=== PATIENT | female | born 1965 | race Caucasian/White ===

== ENCOUNTER 2017-09-28 11:55 | Observation (INO) ==
--- NOTE | 2017-09-28 12:20 | Emergency Department Note ---
Disposition Clinical Impression: Ataxia Disposition: Admitted As Inpatient Condition: Good Referrals: NONE,PCP [Primary Care Provider] - Forms: ED Satisfaction Letter Time of Disposition: 14:36 Dizziness HPI - General Chief Complaint: ED Dizziness Stated Complaint: Dizzy Nausea Time Seen by Provider: 09/28/17 12:16 Source: patient Mode of arrival: ambulatory Limitations: no limitations Nursing Notes Reviewed: Yes Vital Signs Reviewed: Yes - History of Present Illness HPI Narrative: 52-year-old female who awoke about an hour and a half ago with acute dizziness when she lifted her head off the bed. Says she has had vertigo twice in the past and this is different. She had difficulty ambulating. Pt Subjective Complaint: dizziness, lightheadedness Onset (ago): [facility] Timing: sudden onset Description: off-balance, difficulty walking History of similar episodes: No History of trauma: No Severity: moderate, severe Improves with: nothing Worsens with: movement Associated symptoms: Reports: ataxia - Related Data Home Medications Medication Instructions Recorded Confirmed No Known Home Drugs 09/19/16 09/19/16 Allergies Allergy/AdvReac Type Severity Reaction Status Date / Time No Known Allergies Allergy Verified 09/28/17 11:58 Constitutional: Denies: fever, chills, weakness, weight change Eyes: Denies: eye pain, eye discharge, vision change ENT ED: Denies: ear pain, throat pain, dental pain, hearing loss, epistaxis, congestion, dysphagia Cardiovascular: Denies: chest pain, palpitations, dyspnea on exertion, edema, syncope Respiratory: Denies: cough, dyspnea, wheezes, hemoptysis, stridor Gastrointestinal: Denies: abdominal pain, nausea, vomiting, diarrhea, constipation, hematemesis, melena, hematochezia Genitourinary: Denies: dysuria, frequency, hematuria, discharge Musculoskeletal: Denies: back pain, neck pain, arthralgia, myalgia Integumentary: Denies: rash, abrasion, lesions Neurological: Reports: other (Dizziness difficulty walking). Denies: headache, weakness, numbness, paresthesias, confusion, abnormal gait, vertigo Psychiatric: Denies: anxiety, depression, suicidal thoughts, homicidal thoughts , auditory hallucinations, visual hallucinations Endocrine: Denies: fatigue Hematological/Lymphatic: Denies: easy bleeding, easy bruising Allergic/Immunologic: Denies: facial swelling, urticaria Past Medical History - Past Medical History Medical history: Reports: no medical history Surgical history: Reports: appendectomy, cholecystectomy, hysterectomy Psychiatric history: Reports: no psych history CERTIFIED SURGICAL TECHNICIAN history: Reports: no CERTIFIED SURGICAL TECHNICIAN history - Social History Smoking Status: Current every day smoker Smokeless Tobacco Status: No Alcohol use: Reports: none Drug use: Reports: none Physical Exam - General Limitations: no limitations General appearance: alert, in no apparent distress - Head Head exam: atraumatic, normocephalic, normal inspection - Eye Eye exam: Present: normal appearance, PERRL, EOMI - ENT ENT exam: normal exam, normal oropharynx, mucous membranes moist - Neck Neck exam: Present: normal inspection, full ROM, trachea midline - Chest Chest inspection: Present: normal inspection, symmetric chest wall rise - Respiratory Respiratory exam: Present: normal lung sounds bilaterally - Cardiovascular Cardiovascular exam: Present: regular rate, normal rhythm, normal heart sounds - Abdominal Exam Abdominal exam: Present: soft, Non-Tender. Absent: tenderness, distention, guarding, rebound, rigidity - Extremities Exam Extremities exam: Present: normal inspection, full ROM. Absent: tenderness, pedal edema - Expanded Lower Extremity Exam Hip/Pelvis exam: Present: normal inspection, full ROM Neurovascular/Tendon exam: Absent: motor deficit, sensory deficit, tendon deficit Gait: observed and normal - Back Exam Back exam: Present: normal inspection, full ROM. Absent: tenderness - Neurological Exam Neurological exam: Present: alert, oriented X3 - Psychiatric Psychiatric exam: Present: normal affect, normal mood - Skin Skin exam: Present: warm, dry, intact, normal color Course - Reevaluation(s) Reevaluation #1: 52-year-old with ataxic gait and difficulty with the dizziness whose had a history of vertigo and states this is not similar to those episodes comes in because of inability to stand up and walk. A CT was negative for acute findings. We will go ahead and admit the patient. Time: 14:37 - Consultations Consultation #1: Discussed with , jimena. Time: 15:03 Vital Signs Temperature 97.9 F 09/28/17 11:56 Pulse Rate 81 09/28/17 11:56 Respiratory Rate 18 09/28/17 11:56 Blood Pressure 136/85 09/28/17 11:56 O2 Sat by Pulse Oximetry 96 09/28/17 11:56 Temperature 98.5 F 09/28/17 14:13 Pulse Rate 63 09/28/17 14:13 Respiratory Rate 18 09/28/17 14:13 Blood Pressure 126/79 09/28/17 14:13 O2 Sat by Pulse Oximetry 98 09/28/17 14:13 Oxygen Delivery Oxygen Delivery Room Air Dizziness - Lab Data Lab results reviewed: Yes I reviewed the patient's lab results. Result diagrams: 09/28/17 12:34 09/28/17 12:34 Lab Results 09/28/17 09/28/17 09/28/17 Range/Units 12:30 12:34 12:34 WBC 7.2 (4.3-11.1) K/mcL RBC 4.57 (3.82-4.97) M/mcL Hgb 14.4 (11.5-15.4) g/dL Hct 43.4 (35.3-44.9) % MCV 95.0 (83.0-100.0) fL MCH 31.5 (28.0-33.3) pg MCHC 33.2 (31.6-35.5) g/dL RDW 13.0 (11.5-14.5) % Plt Count 278 (140-400) K/mcL MPV 9.0 L (9.4-12.4) fL Immature Gran % 0.3 (0-4) % Seg Neutrophils % 62.1 % Lymphocytes % 28.3 % Monocytes % 6.2 % Eosinophils % 2.4 % Basophils % 0.7 % Neutrophils # 4.5 (1.6-8.9) K/mcL Lymphocytes # 2.0 (0.6-4.6) K/mcL Monocytes # 0.4 (0.0-1.3) K/mcL Eosinophils # 0.2 (0.0-0.6) K/mcL Basophils # 0.1 (0.0-0.2) K/mcL Sodium 139 (136-145) mEq/L Potassium 4.1 (3.5-5.1) mEq/L Chloride 111 H (98-107) mEq/L Carbon Dioxide 19 L (23-29) mEq/L BUN 13 (6-20) mg/dL Creatinine 0.93 (0.60-1.20) mg/dL Est GFR ( Amer) > 60 (> 60) Est GFR (Non-Af Amer) > 60 (> 60) BUN/Creatinine Ratio 14 (6-26) Glucose 98 (70-105) mg/dL Calculated Osmolality 288 (280-300) Calcium 9.8 (8.6-10.3) mg/dL Troponin I < 0.03 (< 0.04) ng/mL Urine Color Yellow (Yellow) Urine Clarity Clear (Clear) Urine pH 6.5 (5.0-8.0) pH Units Ur Specific [place] 1.025 (1.010-1.025) Urine Protein Negative (Neg-Trace) mg/dL Urine Glucose (UA) Normal (Normal) mg/dL Urine Ketones Negative (Negative) mg/dL Urine Blood Negative (Negative) Urine Nitrite Negative (Negative) Urine Bilirubin Negative (Negative) Urine Urobilinogen Normal (Normal) mg/dL Ur Leukocyte Esterase Negative (Negative) Ur Culture Indicated? NO (NO) - Radiology Data Radiology results reviewed: Yes I reviewed the patient's radiology results. Chest X-Ray 09/28/17 12:16 IMPRESSION: No active cardiopulmonary disease D/ / Barrie Arreola MD / Barrie Arreola MD Interpreting Provider: Barrie Arreola MD Head CT 09/28/17 12:16 IMPRESSION: No acute intracranial abnormality. D/ / Jitendra Houser MD / Jitendra Houser MD Interpreting Provider: Jitendra Houser MD - EKG Data EKG attestation: Yes I reviewed and interpreted this EKG. EKG shows normal: sinus rhythm Rate: normal Rhythm: NSR [place]/QRS: normal Interpretation: no acute changes
[2017-09-28 12:49] LABS: Bilirubin,Urine Negative (Negative); Blood,Urine Negative (Negative); Color,Urine Yellow (Yellow); Glucose,Urine (UA) Normal (Normal); Ketones,Urine Negative (Negative); Leukocyte Esterase,Urine Negative (Negative); Nitrite,Urine Negative (Negative); PH,Urine 6.5 pH Units (5.0-8.0); Protein,Urine Negative (Neg-Trace); Specific Gravity,Urine 1.025 (1.010-1.025); Urobilinogen,Urine Normal (Normal)
[2017-09-28 12:49] LABS: Basophils # 0.1 K/mcL (0.0-0.2); Basophils % 0.7 %; Eosinophils # 0.2 K/mcL (0.0-0.6); Eosinophils % 2.4 %; Hematocrit 43.4 % (35.3-44.9); Hemoglobin 14.4 g/dL (11.5-15.4); Immature Granulocytes % 0.3 % (0-4); Lymphocytes % 28.3 %; Mean Corpuscular HGB Conc 33.2 g/dL (31.6-35.5); Mean Corpuscular Hemoglobin 31.5 pg (28.0-33.3); Monocytes # 0.4 K/mcL (0.0-1.3); Monocytes % 6.2 %; Neutrophils # 4.5 K/mcL (1.6-8.9); Platelet Count 278 K/mcL (140-400); Red Blood Count 4.57 M/mcL (3.82-4.97); Segmented Neutrophils % 62.1 %
[2017-09-28 12:52] LABS: Clarity,Urine Clear (Clear)
[2017-09-28 13:11] LABS: Troponin I < 0.03 ng/mL (< 0.04)
[2017-09-28] MEDS ORDERED: Acetaminophen 325 MG TABLET PO PRN (13:24)
[2017-09-28] MEDS ORDERED: Naloxone 0.4 MG/ML INJ IVP PRN (13:24)
[2017-09-28] MEDS ORDERED: SUMAtriptan succinate 25 MG TABLET PO PRN (13:32)
[2017-09-28 13:38] LABS: BUN/Creatinine Ratio 14 (6-26); Blood Urea Nitrogen 13 mg/dL (6-20); Calcium 9.8 mg/dL (8.6-10.3); Carbon Dioxide 19 mEq/L (23-29); Chloride 111 mEq/L (98-107); Glucose 98 mg/dL (70-105); Osmolality,Calculated 288 (280-300); Potassium 4.1 mEq/L (3.5-5.1); Sodium 139 mEq/L (136-145); eGFR For African Americans > 60 (> 60); eGFR For Non-African Americans > 60 (> 60)
--- NOTE | 2017-09-28 13:50 | Internal Med History&Physical ---
<ChuckricardomaryFranklyn good - Last Filed: 09/28/17 16:16> Date of Encounter: 09/28/17 Time of Encounter: 12:30 Internal Medicine - H&P: HPI Chief complaint: Dizziness Admitted From: Emergency Dept Plans for Post Hospital Care: Home History of present illness: Ms. Lema is a 52 year old female w/no medical hx presents to the ED w/CC of dizziness that began this morning at 10 a.m. and has not lessened in severity throughout the day. Reports no alleviating factors. States that changes in position of her head, opening her eyes, and light make the sx worsen. Also reports sharp pain in her left ear yesterday. Reports hx of vertigo many years ago but denies migraine hx. Associated sx: nausea, photophobia. States that her vertigo sx made it seem like room was spinning while current sx take place in her head. Denies recent illness, fever, chills, vomiting, sick contacts, headache, vision changes, CP, SOB, cough, chest congestion, abdominal pain, numbness, tingling, pre-syncope, or syncope. Past Med Surg Social Fam HX - Past Medical History Source: patient, old records reviewed, obtained from family Medical history: no medical history Psychiatric history: no psych history - Past Surgical History Surgical History: appendectomy, cholecystectomy, hysterectomy - Social History Smoking Status: Current every day smoker Smokeless Tobacco Status: No Alcohol use: none Drug use: none Current living situation: Home, With Family Activity Level: Independent ambulation, Very active Recent Out of Country Travel Within the Last 8 Weeks: No Exposure or Possible Exposure to Illness During Travel: No - Family History Grandmother Race: Family Member Ethnicity: Non- Living Status: Age at : 87 Cause of : CVA Hx Family Cardiac Disorders: Yes (CVA) Hx Family Neurologic Disorders: Yes (CVA) Father Race: Family Member Ethnicity: Non- Twin of Family Member: Yes, Identical Living Status: Still Living Hx Family Cardiac Disorders: Yes (HD, HTN, HLD) Hx Family Endocrine Disorder: Yes (DM) Mother Race: Family Member Ethnicity: Non- Living Status: Still Living Hx Family Endocrine Disorder: Yes (DM) Brother Race: Family Member Ethnicity: Non- Living Status: Still Living Hx Family Endocrine Disorder: Yes (DM) Hx Family Psychosocial Disorders: Yes (Anxiety and depression) Internal Medicine - H&P: Meds Meclizine HCl [Bonine] 25 mg PO BID PRN #15 tab.chew 09/29/17 [Rx] Ondansetron ODT [Zofran ODT] 4 mg PO Q6H PRN #20 tab.rapdis 09/29/17 [Rx] Simvastatin [Zocor] 20 mg PO HS #30 tablet 09/29/17 [Rx] 3 Allergy/AdvReac Type Severity Reaction Status Date / Time No Known Allergies Allergy Verified 09/28/17 15:24 All Systems PM: A 10-system review of systems was performed and is negative for pertinent findings except as documented above in the HPI. - Constitutional Constitutional: no chills, no fever(s), no night sweats - EENT Eyes: as per HPI, photophobia, no change in vision, no discharge, no pain Ears: as per HPI, ear pain (Left ear pain yesterday), no ear discharge, no tinnitus Nose, mouth and throat: no dysphagia, no nasal discharge, no neck pain, no sore throat - Breasts Breasts: as per HPI - Cardiovascular Cardiovascular ROS IM: no chest pain, no diaphoresis, no dyspnea, no lightheadedness, no palpitations, no syncope - Respiratory Respiratory: no cough, no dyspnea, no wheezing, no excessive phlegm production - Gastrointestinal Gastrointestinal: as per HPI, nausea, no abdominal pain, no diarrhea, no hematemesis, no hematochezia, no melena, no vomiting - Genitourinary Genitourinary: no change in urinary stream, no dysuria, no flank pain, no hematuria Menstruation: as per HPI - Musculoskeletal Musculoskeletal ROS IM: no numbness, no tingling - Integumentary Integumentary IM: as per HPI, erythema (Erythematous above left shoulder blade from tick bite three days ago. Two smaller tick bites on back.), sores (Three tick bites on back w/one that appears as non-healing above left shoulder blade.) , no rash, no unusual bruising - Neurological Neurological ROS: no confusion, no convulsions, no focal weakness, no numbness, no tingling, no tremor(s) - Psychiatric Psychiatric: as per HPI - Endocrine Endocrine IM: as per HPI - Hematologic/Lymphatic Hematologic/Lymphatic: no easy bruising - Allergic/Immunologic Allergic/Immunologic: as per HPI - Constitutional Vitals: Temp Pulse Resp BP Pulse Ox 97.9 F 81 18 136/85 96 09/28/17 11:56 09/28/17 11:56 09/28/17 11:56 09/28/17 11:56 09/28/17 11:56 General appearance: Present: cooperative, mild distress (Dizziness), A&O X 3, pleasant, obese, answers questions appropriately - Head Head exam: Present: atraumatic, normocephalic - Eye Eye exam: Present: PERRL, conjuntiva pink, sclera anicteric Pupils: Present: PERRL - ENT ENT exam: Present: normal exam - Neck Neck exam general surgery: Present: normal inspection, supple, trachea midline. Absent: lymphadenopathy - Respiratory Respiratory exam: Present: CTAB. Absent: accessory muscle use, rales, rhonchi, wheezes - Cardiovascular Cardiovascular exam: Present: RRR, +S1, +S2. Absent: diastolic murmur, gallop, rubs, systolic murmur - GI/Abdominal GI/Abdominal exam: Present: normal bowel sounds, soft, no peritoneal signs. Absent: distended, tenderness - Rectal Rectal exam: Present: deferred - Additional comments: exam deferred. - Extremities Exam Extremities exam: Present: warm, radial pulses palpable and symmetrical. Absent : calf tenderness, cyanotic, pedal edema - Back Exam Back exam: Present: rash noted (Surrounding tick bite above left shoulder blade) - Neurological Exam Neurological exam: Present: CN II-XII intact, oriented X3, no focal deficits. Absent: pronater drift, facial droop, speech deficit - Psychiatric Psychiatric exam: Present: normal affect, normal mood - Skin Skin exam: Present: dry, intact, rash (Noted above left shoulder blade surrounding tick bite from three weeks ago) Internal Med - H&P Results - Labs CBC & Chem 7: 09/28/17 12:34 09/28/17 12:34 Labs: Short CBC 09/28/17 Range/Units 12:34 WBC 7.2 (4.3-11.1) K/mcL Hgb 14.4 (11.5-15.4) g/dL Hct 43.4 (35.3-44.9) % Plt Count 278 (140-400) K/mcL Neutrophils # 4.5 (1.6-8.9) K/mcL BMP 09/28/17 12:34 Sodium 139 Potassium 4.1 Chloride 111 H Carbon Dioxide 19 L BUN 13 Creatinine 0.93 Glucose 98 Calcium 9.8 Cardiac Enzymes 09/28/17 Range/Units 12:34 Troponin I < 0.03 (< 0.04) ng/mL Urine 09/28/17 Range/Units 12:30 Urine Color Yellow (Yellow) Urine Clarity Clear (Clear) Urine pH 6.5 (5.0-8.0) pH Units Ur Specific [place] 1.025 (1.010-1.025) Urine Protein Negative (Neg-Trace) mg/dL Urine Glucose (UA) Normal (Normal) mg/dL - Impressions ITS Impressions Chest X-Ray 09/28/17 12:16 IMPRESSION: No active cardiopulmonary disease D/ / Barrie Arreola MD / Barrie Arreola MD Interpreting Provider: Barrie Arreola MD Head CT 09/28/17 12:16 IMPRESSION: No acute intracranial abnormality. D/ / Jitendra Houser MD / Jitendra Houser MD Interpreting Provider: Jitendra Houser MD - Diagnostic Studies Chest x-ray Additional comments: Impressions Chest X-Ray 09/28/17 12:16 IMPRESSION: No active cardiopulmonary disease D/ / Barrie Arreola MD / Barrie Arreola MD Interpreting Provider: Barrie Arreola MD CT scan - head Additional comments: Impressions Head CT 09/28/17 12:16 IMPRESSION: No acute intracranial abnormality. D/ / Jitendra Houser MD / Jitendra Houser MD Interpreting Provider: Jitendra Houser MD - Assessment and plan (1) Dizziness Status: Acute Assessment and plan: Acute onset of dizziness this a.m. that patient reports has not happened to this severity before. Worsens w/positional or head changes. Also reports photophobia and worsening sx w/eyes open. Hx of vertigo many years ago but no migraine hx. No medical hx and no current medications. Lyme disease total antibody ordered. Bilateral carotid Dopplers. Echocardiogram ordered. Orthostatic BPs and VS. CT of head unremarkable. MRI of head/brain ordered. Falls/safety precautions, up with assist, bed rest w/bathroom privileges w/ assist only. Pt. discussed w/Dr. Centeno who agrees w/plan of care. Pt. is moderate risk for further morbidity d/t current sx, multiple infected tick bite , worsening sx w/positional changes, and familial hx of CVA in grandmother. Observation. (2) Nausea Status: Acute Assessment and plan: Acute nausea associated w/current dizziness. Worsens w/positional and head changes. IVP Zofran 4 mg Q6HR PRN for N/V. Monitor I&O. (3) DVT prophylaxis Status: Acute Assessment and plan: Heparin 5,000 units SQ Q12 for DVt prophylaxis. Monitor pt. for signs of bleeding. (4) Tick bite of multiple sites Status: Acute Assessment and plan: Acute and multiple tick bites on the patient's back. One tick bite above the left shoulder blade appears to be infected w/surrounding rash/erythema (does not appear as bullseye). Lyme disease total antibody ordered. Wound care consult and daily wound care ordered. Pt. is currently asymptomatic for infection and afebrile. Will monitor pt. and f/u labs. - Time Spent With Patient Total time spent is greater than 50% in coordination of care (as documented) at patient's floor/unit and/or counseling patient: Greater than 35 minutes <Azalea Centeno - Last Filed: 10/07/17 02:05> Date of Encounter: 09/28/17 Internal Medicine - H&P: HPI History of present illness: Ms. Lema is a 52 year old female All Systems PM: A 10-system review of systems was performed and is negative for pertinent findings except as documented above in the HPI. - Constitutional Vitals: Temp Pulse Resp BP Pulse Ox 97.4 F L 64 14 116/77 96 09/29/17 15:25 09/29/17 15:25 09/29/17 15:25 09/29/17 15:25 09/29/17 15:25 Internal Med - H&P Results - Labs CBC & Chem 7: 09/29/17 06:05 09/29/17 06:05 - Attending Attestation I personally and independently interviewed and examined the patient with SYSTEMS SOFTWARE SPECIALIST, and I reviewed the patient's medical records. I am in agreement with the assessment and proposed treatment plan. I discussed my findings and recommendation with the patient and answer all questions. The patient's medical records were edited to accurately reflect this encounter. - Assessment and plan (1) DVT prophylaxis Status: Acute (2) Dizziness Status: Resolved (3) Nausea Status: Acute (4) Tick bite of multiple sites Status: Acute - Time Spent With Patient Total time spent is greater than 50% in coordination of care (as documented) at patient's floor/unit and/or counseling patient:
[2017-09-28] MEDS ORDERED: Ondansetron 4 MG/2 ML VIAL IVP PRN (14:05)
[2017-09-28] MEDS: *HR* Heparin 5,000 UNIT/ML VIAL SQ SCH (22:45)
[2017-09-29] MEDS: *HR* Heparin 5,000 UNIT/ML VIAL SQ SCH ×2 (06:26→14:47)
[2017-09-29 07:19] LABS: Hematocrit 38.5 % (35.3-44.9); Hemoglobin 13.3 g/dL (11.5-15.4); Mean Corpuscular HGB Conc 34.5 g/dL (31.6-35.5); Mean Corpuscular Volume 95.5 fL (83.0-100.0); Mean Platelet Volume 9.4 fL (9.4-12.4); Platelet Count 262 K/mcL (140-400); Red Blood Count 4.03 M/mcL (3.82-4.97)
--- NOTE | 2017-09-29 07:21 | Electrocardiograph Report ---
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
[2017-09-29 07:55] LABS: Alanine Aminotransferase 12 Units/L (7-52); Albumin 3.5 g/dL (3.5-5.7); Albumin/Globulin Ratio 1.2 (1.1-2.2); Alkaline Phosphatase 66 Units/L (34-104); Aspartate Amino Transferase 10 Units/L (13-39); BUN/Creatinine Ratio 16 (6-26); Bilirubin,Total 0.3 mg/dL (0.3-1.0); Blood Urea Nitrogen 13 mg/dL (6-20); Calcium 9.2 mg/dL (8.6-10.3); Carbon Dioxide 21 mEq/L (23-29); Chol/HDL Ratio 7.6 (0-4.9); Cholesterol 242 mg/dL (< 200); Glucose 92 mg/dL (70-105); HDL Cholesterol 32 mg/dL (40-59); LDL Cholesterol,Calculated 159 mg/dL (0-99); Magnesium 2.2 mg/dL (1.6-2.6); Total Protein 6.5 g/dL (6.4-8.9); Triglycerides 255 mg/dL (< 150); eGFR For African Americans > 60 (> 60); eGFR For Non-African Americans > 60 (> 60)
[2017-09-29 09:34] LABS: Chloride 109 mEq/L (98-107); Osmolality,Calculated 288 (280-300); Potassium 4.2 mEq/L (3.5-5.1); Sodium 139 mEq/L (136-145)
[2017-09-29 10:03] LABS: Estimated Average Glucose 123 mg/dl; Hemoglobin A1C 5.9 %
[2017-09-29 15:26] VITALS: BP 116/77
--- NOTE | 2017-09-29 18:16 | Discharge Summary ---
- NOTES TO OUTPATIENT PROVIDER Notes to Outpatient Provider: Patient was admitted for dizziness, nausea. Patient has multiple tick bites across her body. Lyme antibody negative. Carotids are negative, echocardiogram is negative. MRI showed a remote lacunar infarct and left caudate nucleus and cerebellar hemisphere. Patient's dizziness has resolved, as he has resolved and she is able to tolerate meals, she is able to walk without any dizziness. Due to her hyperlipidemia, I will add a statin to her medication regimen, we discussed lifestyle modifications and diet changes. Date of Encounter: 09/29/17 Time of Encounter: 11:20 - Discharge Diagnosis (1) DVT prophylaxis Priority: Secondary Status: Acute Assessment and Plan: Heparin. Pt is ambulatory in the room. (2) Dizziness Priority: Secondary Status: Resolved Assessment and Plan: Patient acute onset of dizziness prior to arrival. History of dizziness in the past, not to this extent. Patient reports worsening with position or head changes. Patient denies any recent sick contacts. Head CT is negative. Brain MRI shows no acute intracranial abnormality, mild chronic white matter microvascular ischemic changes, a remote lacunar infarcts in the left caudate nucleus and right cerebellar hemisphere. Echocardiogram shows LVEF is 66 5% with mild LV DDsignificant valvular dysfunction. Patient with nonstenotic plaque bilaterally in carotid arteries per Doppler. Dizziness has resolved. Patient is able to ambulate without difficulty. Unclear etiology, patient states that when she gets up too quickly she can become dizzy and almost fall. I encouraged patient to remain hydrated and to get up slowly from a seated position. Follow with primary care. Boyle 25 mg when necessary dizziness, Zofran ODT when necessary nausea HEad CT 09/28/17 12:16 IMPRESSION: No acute intracranial abnormality. D/ / Jitendra Houser MD / Jitendra Houser MD Interpreting Provider: Jitendra Houser MD Brain MRI 09/28/17 13:38 IMPRESSION: 1. No acute intracranial abnormality. 2. Mild chronic white matter microvascular ischemic changes. 3. Remote lacunar infarcts in the left caudate nucleus and right cerebellar hemisphere. D/ / Chuy Weiss / Chuy Weiss Interpreting Provider: Chuy Weiss Echocardiogram 09/28/17 15:11 Impressions: LVEF 60-65%. Mild left ventricular diastolic dysfunction. Normal right ventricular structure and function. No significant valvular dysfunction. No pulmonary hypertension. Left Ventricular Wall Motion: Rest Echo Findings All wall segments showed normal motion. Findings: Study Quality * Technically adequate exam. ECG Findings * Normal sinus rhythm. Left Ventricle * LVEF 60-65%. * Normal LV chamber size, wall thickness and function. * Mild left ventricular diastolic dysfunction. Right Ventricle * Normal right ventricular structure and function. Left Atrium * Normal left atrial size. Right Atrium * Normal right atrial size. Aortic Valve * No aortic regurgitation. * Trileaflet aortic valve. * No aortic stenosis. Mitral Valve * Normal mitral valve structure. * No mitral stenosis. * Trace mitral regurgitation. Tricuspid Valve * Normal tricuspid valve structure. * Trace tricuspid regurgitation. * Estimated RA pressure is 3 mmHg. * Estimated RVSP is 17 mmHg. * No pulmonary hypertension. Pulmonic Valve * Pulmonic valve is not well visualized. * No pulmonic stenosis. * No pulmonic regurgitation. Pulmonary Artery * Pulmonary artery not well visualized. Aorta * Normally sized aortic root. Pericardium * There is no pericardial effusion present. Interatrial Septum * Interatrial septum not well evaluated. IVC * The IVC is not dilated. (3) Nausea Priority: Secondary Status: Acute Assessment and Plan: Nausea has resolved with dizziness. Will send patient home with prescription for Zofran 4 mg ODT every 6 hours as needed. Patient is able to tolerate regular diet tray without nausea or vomiting prior to discharge. (4) Tick bite of multiple sites Priority: Secondary Status: Acute Assessment and Plan: She reports that she has been walking in [place] [employer] [place] lately with her son. She reports multiple tick bites when she got home. Lyme disease antibody is negative. Patient has 2 areas on her back where ticks was located and removed that have redness and scratches were patient has been scratching them. There are no bull's-eye rash is around any of the tick bites. None of them appear to be infected. Continue to keep them clean and dry and watch them. Again, follow with primary care. Hospital course: Ms. Lema is a 52 year old female presented to the emergency department with sudden onset dizziness that began the morning of admission, did not improve throughout the day. Patient states that nothing made it stop and it was worsened with changes in position, opening her eyes, patient also reports photophobia. Patient reports having sharp pain in her left ear prior to arrival and does report a prior history of vertigo many years ago. Patient had associated symptoms of nausea. Echocardiogram showed preserved ejection fraction with mild LV DD and no significant valvular dysfunction. Carotids showed minimal plaque throughout. Patient had multiple tick bites recently, concern for Lyme disease. Antibody was negative. Status appeared to resolve on its own today, as it nausea. Patient was able to ambulate without difficulty or staggering, no dizziness. She was also able to eat without nausea or vomiting. Patient was found to have hyperlipidemia with elevated cholesterol, triglycerides, LDL, VLDL. Patient has been started on a statin. She will also be sent home with a prescription for Zofran ODT and meclizine 25 mg by mouth twice a day as needed for nausea. Vitals and labs are stable and within normal limits. Patient will need to follow with primary care for continued evaluation. She is not to drive until she follows up and is cleard by primary care. Discharge discussed with: patient, family - Time Spent with Patient Total time spent providing and/or coordinating discharge services: Less than 30 minutes - Discharge Medications Prescriptions: Meclizine HCl [Bonine] 25 mg PO BID PRN #15 tab.chew PRN Reason: Dizziness Ondansetron ODT [Zofran ODT] 4 mg PO Q6H PRN #20 tab.rapdis PRN Reason: Nausea Simvastatin [Zocor] 20 mg PO HS #30 tablet Home Medications: Meclizine HCl [Bonine] 25 mg PO BID PRN #15 tab.chew 09/29/17 [Rx] Ondansetron ODT [Zofran ODT] 4 mg PO Q6H PRN #20 tab.rapdis 09/29/17 [Rx] Simvastatin [Zocor] 20 mg PO HS #30 tablet 09/29/17 [Rx] Allergies/Adverse Reactions: 3 Allergy/AdvReac Type Severity Reaction Status Date / Time No Known Allergies Allergy Verified 09/28/17 15:24 Date of admission: 09/28/17 15:17 Primary care physician: PCP NONE Discharging clinician: Bell Whitlock Anticipated date of discharge: 09/29/17 - Constitutional Vitals: Temp Pulse Resp BP Pulse Ox 97.4 F L 64 14 116/77 96 09/29/17 15:25 09/29/17 15:25 09/29/17 15:25 09/29/17 15:25 09/29/17 15:25 General appearance: Present: cooperative, mild distress (Dizziness), A&O X 3, pleasant, obese, answers questions appropriately - Head Head exam: Present: atraumatic, normal inspection, normocephalic - Eye Eye exam: Present: EOMI, normal appearance, conjuntiva pink, sclera anicteric. Absent: nystagmus Pupils: Present: PERRL - Neck Neck exam general surgery: Present: normal inspection, supple, trachea midline. Absent: lymphadenopathy, tenderness - Respiratory Respiratory exam: Present: CTAB. Absent: accessory muscle use, rales, respiratory distress, rhonchi, wheezes - Cardiovascular Cardiovascular exam: Present: RRR, +S1, +S2. Absent: diastolic murmur, gallop, rubs, systolic murmur - GI/Abdominal GI/Abdominal exam: Present: normal bowel sounds, soft, no peritoneal signs. Absent: distended, hepatomegaly, tenderness - Extremities Exam Extremities exam: Present: normal capillary refill, normal inspection, warm, radial pulses palpable and symmetrical. Absent: calf tenderness, cyanotic, pedal edema, tenderness - Neurological Exam Neurological exam: Present: alert, oriented X3, no focal deficits. Absent: altered, facial droop, speech deficit - Skin Skin exam: Present: dry, intact, normal color, warm. Absent: rash - Patient Status Disposition: Home, Self-Care Condition: Good Functional capacity at discharge: independent ambulation Overall status at discharge: patient is progressing back to baseline - Discharge Instructions Follow Up With: Marino Means MD [Non-Partnered Physician] - (Appointment has been webrequested at this time. Our offices will call you with an appointment time and date. If you do not hear from us within 2-3 days, please call [phone]. Thank You.) Additional Instructions: Please follow-up with your primary care provider in the next 5-[address] into you are released primary care. Take your medications as directed. Return to the emergency department as needed for any other problems or concerns. Return to her normal diet and activities as tolerated. - Diet and Activity Activity: resume usual activities as tolerated Diet: advance to your usual diet, low fat, low cholesterol
== END 2017-09-29 20:00 | disposition home or self-care (01) ==
LOC: 3BNU 11:55 → EMEROO 11:55 → 3BNU 15:58
PROVIDERS: ADMIT Internal Medicine Nephrology; ATTEND Internal Medicine Nephrology

== ENCOUNTER 2021-05-13 01:53 | Observation (INO) ==
[2021-05-13] MEDS ORDERED: Isovue-370 500 ML BOTTLE IVP ONE (02:07)
[2021-05-13 02:15] LABS: Basophils # 0.1 K/mcL (0.0-0.2); Basophils % 0.6 %; Eosinophils # 0.2 K/mcL (0.0-0.6); Eosinophils % 2.2 %; Hematocrit 42.3 % (35.3-44.9); Hemoglobin 13.8 g/dL (11.5-15.4); Immature Granulocytes % 0.3 % (0-4); Lymphocytes # 2.7 K/mcL (0.6-4.6); Lymphocytes % 27.1 %; Mean Corpuscular HGB Conc 32.6 g/dL (31.6-35.5); Mean Corpuscular Hemoglobin 31.7 pg (28.0-33.3); Mean Platelet Volume 9.1 fL (9.4-12.4); Monocytes # 0.7 K/mcL (0.0-1.3); Monocytes % 7.1 %; Neutrophils # 6.3 K/mcL (1.6-8.9); Platelet Count 294 K/mcL (140-400); Red Blood Count 4.36 M/mcL (3.82-4.97); Red Cell Distribution Width 13.7 % (11.5-14.5); Segmented Neutrophils % 62.7 %
[2021-05-13 02:28] LABS: INR 2.1; Prothrombin Time 22.8 Seconds (9.4-12.1)
[2021-05-13 02:30] LABS: Activated Partial Thrombo Time 51.8 Seconds (26.0-36.0)
[2021-05-13 02:34] LABS: BUN/Creatinine Ratio 20 (6-26); Blood Urea Nitrogen 18 mg/dL (6-20); Calcium 9.8 mg/dL (8.6-10.3); Carbon Dioxide 22 mEq/L (23-29); Chloride 111 mEq/L (98-107); Glucose 109 mg/dL (70-105); Osmolality,Calculated 286 (280-300); Sodium 137 mEq/L (136-145); Troponin I < 0.03 ng/mL (< 0.04); eGFR For African Americans > 60 (> 60); eGFR For Non-African Americans > 60 (> 60)
[2021-05-13] MEDS ORDERED: Aspirin 81 MG TAB.CHEW PO ONE (07:51)
[2021-05-13] MEDS ORDERED: Naloxone 0.4 MG/ML INJ IVP PRN (07:54)
[2021-05-13] MEDS ORDERED: Melatonin 3 MG TABLET PO PRN (07:54)
[2021-05-13] MEDS ORDERED: Regadenoson 0.4 MG/5 ML SYRINGE IVP ONE (08:10)
[2021-05-13] MEDS ORDERED: Metoprolol XL (24 HR) Succ 25 MG TAB.ER.24H PO SCH (09:15)
[2021-05-13 09:20] LABS: Influenza A PCR Negative (Negative); Influenza B PCR Negative (Negative); Resp. Syncytial Virus PCR Negative (Negative)
[2021-05-13 09:21] LABS: SARS-CoV-2 by PCR (In House) Negative (Negative)
[2021-05-13 14:43] VITALS: BP 124/71; PULSE 73; TEMP 98.1; O2SAT 98
[2021-05-13] MEDS ORDERED: *HR* Rivaroxaban 15 MG TABLET PO SCH (21:00)
[2021-05-14] MEDS ORDERED: Aspirin 81 MG TAB.CHEW PO SCH (09:00)
[2021-05-15] MEDS ORDERED: *HR* Rivaroxaban 10 MG TABLET PO SCH (17:00)
== END 2021-05-13 16:12 | disposition home or self-care (01) ==
LOC: 3BNU 01:53 → EMEROOARM 01:53 → 3BNU 09:41
PROVIDERS: ADMIT Internal Medicine; ATTEND Internal Medicine